=== PATIENT | female | born 1975 | race Caucasian/White ===

== ENCOUNTER 2020-03-31 07:21 | Outpatient (REF) | payer OTHER, SELFPAY ==
--- NOTE | 2020-03-31 07:25 | MM_ITS ---
EXAMINATION: MM SCREENING DIGITAL BREAST TOMOSYNTHESIS, BILATERAL CLINICAL INFORMATION: Screening. Asymptomatic. The lifetime risk of breast cancer based on the Tyrer-Cuzick Model is 17%. COMPARISON: Mammography: 03/26/2019, 02/18/2018, 01/15/2017 TECHNIQUE: Digital breast tomosynthesis is performed in both the craniocaudal and mediolateral oblique views along with computer-aided detection (CAD). Synthesized 2D images are generated from the tomosynthesis. FINDINGS: There are scattered areas of fibroglandular density (ACR BI-RADS breast composition Category b). There are no significant masses, abnormal calcifications, or other abnormalities. There is small intramammary node again suggested mid 9:00 right breast, under 5 mm. The axilla and skin contours are unremarkable. MM/MM tomosynthesis screening BI IMPRESSION: No significant changes from prior study. ASSESSMENT: BI-RADS 2: Benign RECOMMENDATION: Routine annual mammography screening. This patient's information was entered into a reminder system with a target due date for their next mammogram.
== END 2020-03-31 07:22 | disposition home or self-care (01) ==
LOC: HO.MAMMO 07:21
PROVIDERS: PCP Internal Medicine; Visit Provider Internal Medicine
DX: Z12.31 Encounter for screening mammogram for malignant neoplasm of breast (principal)
CPT/HCPCS: 77063; 77067

== ENCOUNTER 2020-04-02 06:59 | Outpatient (REF) | payer OTHER, SELFPAY ==
[2020-04-02 11:40] LABS: Hematocrit 37.6 % (37-47); Hemoglobin 11.7 g/dl (12.0-16.0); Mean Corpuscular HGB Conc 31.1 g/dl (31.0-35.0); Mean Corpuscular Hemoglobin 23.8 pg (27.0-33.0); Mean Corpuscular Volume 76.6 fL (80-98); Mean Platelet Volume 9.6 fL (9.4-12.3); Platelet Count 444 X10*3/uL (160-400); Red Blood Count 4.91 X10*6/uL (4.20-5.50); Red Cell Distribution Width 14.4 % (11.0-16.0); White Blood Count 9.3 X10*3/uL (4.8-10.8)
[2020-04-02 11:50] LABS: Alanine Aminotransferase 16 U/L (0-31); Aspartate Amino Transferase 17 U/L (5-31); Cholesterol 172 mg/dL; Glucose Fasting 92 mg/dL (60-99); HDL Cholesterol 49 mg/dL; LDL Cholesterol Calculated 97 mg/dl; Triglycerides 132 mg/dL
[2020-04-02 12:13] LABS: TSH reflex Free T4 1.49 mIU/mL (0.32-4.0)
== END 2020-04-02 07:00 | disposition home or self-care (01) ==
LOC: HO.HMGCLDS 06:59
PROVIDERS: PCP Internal Medicine; Visit Provider Internal Medicine
DX: Z00.01 Encounter for general adult medical examination with abnormal findings (principal); K21.00 Gastro-esophageal reflux disease with esophagitis, without bleeding; Z83.49 Family history of other endocrine, nutritional and metabolic diseases
CPT/HCPCS: 36415; 80061; 82947; 84443; 84450; 84460; 85027

== ENCOUNTER 2020-11-26 14:42 | Outpatient (REF) | payer OTHER, SELFPAY ==
[2020-11-29 13:17] LABS: HPV mRNA E6/E7 rflx Not Detected (Not Detected)
== END 2020-11-26 14:43 | disposition home or self-care (01) ==
LOC: HO.LAB 14:42
PROVIDERS: Visit Provider Obstetrics & Gynecology
DX: Z01.411 Encounter for gynecological examination (general) (routine) with abnormal findings (principal); Z11.51 Encounter for screening for human papillomavirus (HPV); R31.29 Other microscopic hematuria
CPT/HCPCS: 87086; 87624; 88142

== ENCOUNTER → 2020-12-10 14:57 | Outpatient (BNVA) | payer OTHER, SELFPAY | PROVIDERS: Visit Provider Obstetrics & Gynecology ==

== ENCOUNTER 2020-12-17 08:36 | Outpatient (REF) | payer OTHER, SELFPAY ==
--- NOTE | ~2020-12-17 | CT_ITS ---
EXAMINATION: CT ABDOMEN AND PELVIS WITHOUT AND WITH CONTRAST CLINICAL INFORMATION: Hematuria COMPARISON: None TECHNIQUE: Multidetector volumetric imaging was performed of the abdomen and pelvis before and after the IV administration of 85 mL of Omnipaque 300 intravenous contrast. Sagittal and coronal reformatted images were obtained on the technologist's workstation. This CT examination was performed using dose optimization techniques as appropriate, variously including the following: *Automated exposure control *Adjustment of mA and/or kV according to patient size (this includes techniques or standardized protocols for targeted exams where dose is matched to indication/reason for exam; i.e. extremities or head) *Use of iterative reconstruction technique DLP: 1100 mGy-cm FINDINGS: LUNG BASES: The visualized lung bases are unremarkable. LIVER, GALLBLADDER, AND BILIARY TREE: The liver is normal in size, shape, and attenuation. No focal hepatic lesion or biliary ductal dilatation is present. The gallbladder has been removed. PANCREAS: Unremarkable SPLEEN: Unremarkable ADRENAL GLANDS: Unremarkable KIDNEYS AND URETERS: The kidneys are normal in size, shape, and attenuation. No renal stone, mass or hydronephrosis is seen. The collecting systems are normal. The ureters are normal. BLADDER: The bladder is well-distended. The bladder is otherwise normal. GASTROINTESTINAL TRACT: The small and large bowel are unremarkable. The appendix is unremarkable. ABDOMINAL WALL: No significant hernia is appreciated. LYMPH NODES: Normal VASCULAR: Unremarkable PELVIC VISCERA: Unremarkable OSSEOUS STRUCTURES: Unremarkable CT/CT abdomen pelvis wo/w con IMPRESSION: Normal CT IVP. No cause of hematuria seen.
[2020-12-17] MEDS: iohexoL 350 MG/ML 100 ML INFUS..BTL IV (09:42)
== END 2020-12-17 08:37 | disposition home or self-care (01) ==
LOC: HO.CT 08:36
PROVIDERS: Visit Provider Obstetrics & Gynecology
DX: R31.29 Other microscopic hematuria (principal)
CPT/HCPCS: 74178; Q9967

== ENCOUNTER → 2021-02-13 14:12 | Outpatient (BNVA) | payer OTHER, SELFPAY | PROVIDERS: PCP Internal Medicine ==

== ENCOUNTER → 2021-02-28 15:22 | Outpatient (BNVA) | payer OTHER, SELFPAY | PROVIDERS: PCP Internal Medicine ==

== ENCOUNTER 2021-04-13 07:31 | Outpatient (REF) | payer OTHER, SELFPAY ==
--- NOTE | ~2021-04-13 | MM_ITS ---
EXAMINATION: MM SCREENING DIGITAL BREAST TOMOSYNTHESIS, BILATERAL CLINICAL INFORMATION: Screening. Asymptomatic. The lifetime risk of breast cancer based on the Tyrer-Cuzick Model is 17%. COMPARISON: Mammography: 03/31/2020, 03/26/2019 TECHNIQUE: Digital breast tomosynthesis is performed in both the craniocaudal and mediolateral oblique views along with computer-aided detection (CAD). Synthesized 2D images are generated from the tomosynthesis. FINDINGS: There are scattered areas of fibroglandular density (ACR BI-RADS breast composition Category b). There are no significant masses, abnormal calcifications, or other abnormalities. Parenchymal pattern is similar to prior studies. Probable intramammary node mid 9:00 right breast is similar to prior exams. The axilla and skin contours are unremarkable. MM/MM tomosynthesis screening BI IMPRESSION: No mammographic evidence of malignancy. ASSESSMENT: BI-RADS 2: Benign RECOMMENDATION: Routine annual mammography screening. This patient's information was entered into a reminder system with a target due date for their next mammogram.
== END 2021-04-13 07:32 | disposition home or self-care (01) ==
LOC: HO.MAMMO 07:31
PROVIDERS: Visit Provider Obstetrics & Gynecology
DX: Z12.31 Encounter for screening mammogram for malignant neoplasm of breast (principal)
CPT/HCPCS: 77063; 77067

== ENCOUNTER → 2021-05-16 14:47 | Outpatient (BNVA) | payer OTHER, SELFPAY | PROVIDERS: PCP Internal Medicine ==

== ENCOUNTER 2022-05-02 10:50 | Day surgery (SDC) | payer OTHER, SELFPAY ==
--- NOTE | 2022-05-01 12:32 | HO.ANESPROP2 ---
Documented by User: Marla Mendoza NP 05/01/22 12:33 HPI - Anesthesia Eval Consult details Narrative: 46yo F for Colonoscopy PMFSH Active Problems Active Problems: All Active Problems (Updated 05/01/22 @ 12:27 by Rose Beltran, GERARDO) Microscopic hematuria (Acute) Generalized anxiety disorder (Acute) Frequent UTI (Acute) Past Medical History Medical History Frequent UTI Gastric reflux Generalized anxiety disorder Hiatal hernia with GERD IBS (irritable bowel syndrome) Sleep apnea Family History Family History Paternal Grandmother Breast CA Paternal Uncle Mental health disorder Sister Mental health disorder Mother Mental health disorder Surgical History Surgical History (Updated 05/02/22 @ 11:39 by Landy Handy MD) History of esophagogastroduodenoscopy (EGD) Hx of cholecystectomy Social History Social History Housing: House Alcohol intake: current Patient Tobacco Use Status: Never used Tobacco e-Cigarette/Vaping Use: Never Used Use of substances other than those prescribed or required for medical reasons: No Are you DNR?: No Advance Directives: No Advance Directives Information Provided: Yes Current occupational status: employed Cognitive needs: No Hearing needs: No Vision needs: Yes Meds Allergies Allergy/AdvReac Type Severity Reaction Status Date / Time No Known Allergies Allergy Verified 01/28/22 14:39 [No Known Allergies*] Home Medications Medication Instructions Recorded Confirmed Last Taken Type multivitamin 1 tab PO DAILY 11/07/21 11/25/21 Unknown History Exam Exam Date and Time: May 01, 2022 1232 Assessment and Plan Assessment Anesthesia Assessment: Chart Reviewed Documented by User: Landy Handy MD 05/02/22 11:41 PMFSH Past Medical History Medical History Frequent UTI Gastric reflux Generalized anxiety disorder Hiatal hernia with GERD IBS (irritable bowel syndrome) Sleep apnea Family History Family History Paternal Grandmother Breast CA Paternal Uncle Mental health disorder Sister Mental health disorder Mother Mental health disorder Family history of problems with anesthesia: No Surgical History Surgical History (Updated 05/02/22 @ 11:39 by Landy Handy MD) History of esophagogastroduodenoscopy (EGD) Hx of cholecystectomy History of Problems with Anesthesia: No Social History Social History Housing: House Alcohol intake: current Patient Tobacco Use Status: Never used Tobacco e-Cigarette/Vaping Use: Never Used Use of substances other than those prescribed or required for medical reasons: No Are you DNR?: No Advance Directives: No Advance Directives Information Provided: Yes Current occupational status: employed Cognitive needs: No Hearing needs: No Vision needs: Yes Meds Allergies Allergy/AdvReac Type Severity Reaction Status Date / Time No Known Allergies Allergy Verified 01/28/22 14:39 [No Known Allergies*] Home Medications Medication Instructions Recorded Confirmed Last Taken Type multivitamin 1 tab PO DAILY 11/07/21 11/25/21 Unknown History Exam Height,Weight and Vital Signs: Height 5 ft 2 in Weight 83.915 kg Vital Signs Temp Pulse Resp BP Pulse Ox O2 Del Method 05/02/22 11:16 98.6 F 75 18 136/95 H 100 Room Air Pertinent Lab Results Pertinent Lab Results: Lab Results 05/02/22 Range/Units Unknown Urine Test NEGATIVE (NEGATIVE) Airway Mallampati Class: II TM Dist: >3cm Neck ROM: Full Loose/Missing/Broken Teeth: No (DEnies broken, loose, missing teeth. Caps bottom front, back left) Heart: RRR Lungs: CTAB Assessment and Plan Assessment Anesthesia Assessment: Anesthesia Plan Discussed Final Anesthetic Review Family History of Problems with Anesthesia: No History of Problems with Anesthesia: No NPO: Yes ASA Class: II Final Preanesthetic Review: No Changes in Pt Med Stat, Meds/Allgs Chart Reviewed, Consent Obtained/Reviewed and Anes Risks/Benef Reviewed Patient Risk: Intermediate Procedure Risk: Low Assessment/Block/Sedation in SS: Assess/Block/Sedation-SS Anesthetic Plan Anesthetic Plan: MAC: Disposition: Standard PACU
[2022-05-02 11:12] VITALS: BMI 33.8
[2022-05-02 11:16] VITALS: BP 136/95; PULSE 75; RESP 18; TEMP 37; O2SAT 100
[2022-05-02 11:23] LABS: UPreg QC Valid YES; Urine Pregnancy NEGATIVE (NEGATIVE)
[2022-05-02] MEDS: Lactated Ringers 1,000 ML 100 ML IVCONT (11:39)
[2022-05-02 13:02] VITALS: BP 91/44; PULSE 91; RESP 20; TEMP 36.4; O2SAT 97
--- NOTE | 2022-05-02 13:03 | PM.OP ---
Brief Operative Note Date of Service: 05/02/22 Pre-op diagnosis: Screening Post-op diagnosis: other (Polyps) Procedure: Colonoscopy to the cecum and TI with biopsy and removal of polyps Surgeon: Lopez Fermin Anesthesia: MAC Was an Inventory Associate used for this Procedure?: No Estimated blood loss (mL): 2.0 Pathology: other (A. Polyp at 30cm B. Polyp at 20cm) Condition: stable Disposition: PACU
[2022-05-02 13:17] VITALS: BP 103/67; PULSE 85; RESP 16; TEMP 36.5; O2SAT 99
--- NOTE | 2022-05-02 21:12 | OP_ITS ---
SURGEON: Lopez Fermin MD INDICATIONS: The patient presents for evaluation of colorectal cancer screening. Full consent has been obtained from her for this, including risks of bleeding and perforation. PREOPERATIVE DIAGNOSIS: Colorectal cancer screening. POSTOPERATIVE DIAGNOSIS: Colorectal cancer screening, small colon polyps, diverticulosis, internal and external hemorrhoids. PROCEDURE PERFORMED: Colonoscopy to the cecum and terminal ileum with biopsy and removal of polyps. ESTIMATED BLOOD LOSS: COMPLICATIONS: ANESTHESIA: Monitored anesthesia care. ASSISTANTS: SPECIMENS: DESCRIPTION OF PROCEDURE: The patient was placed in the left lateral decubitus position. The digital rectal exam revealed some external hemorrhoids. The Olympus video pediatric colonoscope was entered into the rectum and advanced easily to the cecum. Once in the cecum I did identify a normal-appearing cecal pouch with appendiceal orifice and a normal-appearing ileocecal valve. The terminal ileum was cannulated and appeared normal. The scope withdrawn back into the colon. The entire cecum and the ileocecal valve appeared normal. The scope was slowly withdrawn assessing all mucosal surfaces carefully. Preparation was excellent. At 30 cm and at 20 cm were flat less than 5 mm polyps, which were each biopsied and completely removed with a cold biopsy forceps. I did visualize a single sigmoid diverticulum as well. I did not visualize any other polyps, colitis, nor angiodysplasia. In the rectum, the scope was retroflexed visualizing internal hemorrhoids, but no other pathology. The rectal mucosa appeared normal. The scope was straightened and withdrawn from the patient. She tolerated the procedure well and was returned to the recovery area in stable condition. IMPRESSION: 1. Colon polyps, status post biopsy and removal. 2. Single sigmoid diverticulum. 3. Internal and external hemorrhoids. PLAN: The results of the biopsies will be checked. If either of the polyps are tubular adenomas I would recommend a followup colonoscopy in 5 years. If they are both hyperplastic I would recommend a followup colonoscopy in 10 years. She will otherwise see me on a p.r.n. basis. MD GERMÁN Gonzales/CHET / [id number] MTDD
== END 2022-05-02 13:45 | disposition home or self-care (01) ==
PROVIDERS: Nurse Practitioner; PCP Internal Medicine; Visit Provider Internal Medicine
PROC: 0DJD8ZZ Inspection of Lower Intestinal Tract, Via Natural or Artificial Opening Endoscopic (ICD-10-PCS; CPT 45378; principal; 2022-05-02 12:00)
DX: Z12.11 Encounter for screening for malignant neoplasm of colon (principal); K63.5 Polyp of colon; K57.30 Diverticulosis of large intestine without perforation or abscess without bleeding; K64.8 Other hemorrhoids; K64.4 Residual hemorrhoidal skin tags; K58.9 Irritable bowel syndrome, unspecified; K21.9 Gastro-esophageal reflux disease without esophagitis; R31.29 Other microscopic hematuria; F41.1 Generalized anxiety disorder; Z87.440 Personal history of urinary (tract) infections; Z87.898 Personal history of other specified conditions; Z90.49 Acquired absence of other specified parts of digestive tract
CPT/HCPCS: 45380; 81025; 88305; J2250; J2405; J2765

== ENCOUNTER 2022-05-24 07:23 | Outpatient (REF) | payer OTHER, SELFPAY ==
--- NOTE | ~2022-05-24 | MM_ITS ---
EXAMINATION: MM SCREENING DIGITAL BREAST TOMOSYNTHESIS, BILATERAL CLINICAL INFORMATION: Screening. Asymptomatic. The lifetime risk of breast cancer based on the Tyrer-Cuzick Model is 16%. COMPARISON: Mammography: 04/13/2021, 03/31/2020, 03/26/2019 TECHNIQUE: Digital breast tomosynthesis is performed in both the craniocaudal and mediolateral oblique views along with computer-aided detection (CAD). Synthesized 2D images are generated from the tomosynthesis. FINDINGS: There are scattered areas of fibroglandular density (ACR BI-RADS breast composition Category b). There are no significant masses, abnormal calcifications, or other abnormalities. Parenchymal pattern is similar to prior studies. There is no developing density or architectural abnormality. The previously noted nodule likely intramammary node mid outer right breast is less conspicuous, decreased. The axilla and skin contours are unremarkable. No significant changes. MM/MM tomosynthesis screening BI IMPRESSION: No mammographic evidence of malignancy. ASSESSMENT: BI-RADS 2: Benign RECOMMENDATION: Routine annual mammography screening. This patient's information was entered into a reminder system with a target due date for their next mammogram.
== END 2022-05-24 07:24 | disposition home or self-care (01) ==
LOC: HO.MAMMO 07:23
PROVIDERS: PCP Internal Medicine; Visit Provider Internal Medicine
DX: Z12.31 Encounter for screening mammogram for malignant neoplasm of breast (principal)
CPT/HCPCS: 77063; 77067

== ENCOUNTER 2022-12-29 07:51 | Outpatient (AMB) | payer OTHER, SELFPAY ==
--- NOTE | 2022-12-29 07:55 | MHC.PC.OV ---
Vital Signs 12/29/22 08:00 Height 5 ft 2 in Weight 190 lb BMI 34.7 BP 122/80 Blood Pressure Location Rt brachial Position Sitting Pulse 64 Pulse Source Pulse Oximeter Pulse Oximetry (%) 99 Oxygen Delivery Method Room Air Intake Visit Reasons: Annual PE Intake Note: Pt is here today for her PE Is last menstrual period known: Yes Last menstrual period: 12/16/22 Allergies No Known Allergies [No Known Allergies*] Allergy (Verified 12/29/22 08:58) Medication List - Last Reconciled 12/29/22 by Geraldine Nash MD multivitamin 1 tab PO DAILY Tobacco use date assessed: 12/29/22 Dental Screening Dental Screen Date: 12/29/22 Did you have a dental visit in the last 12 months?: No Was dental information given to patient?: Patient declined HPI Annual PE HPI Details 47 year old here today for her physical exam has generalized anxiety disorder, stop taking her buspirone, did not feel that she needed to take it, able to manage her anxiety symptoms which are occurring infrequently with behavioral techniques. She is up-to-date with all her vaccinations, but does not want to get her COVID booster anymore. She sees Dr. Aguiar for her routine Pap and pelvic exam, up-to-date with her screening mammogram and off also is up-to-date with her screening colonoscopy done by Dr. Fermin last year with 2 hyperplastic polyps removed, due for repeat colonoscopy in 2031. She has had history of frequent UTIs, already been seen by Urology, and placed on antibiotics at that time. At present has no urinary symptoms PFSH Medical History (Updated 12/29/22 @ 09:11 by Geraldine Nash MD) Anemia Annual visit for general adult medical examination with abnormal findings Family history of hypothyroidism Frequent UTI Gastric reflux Generalized anxiety disorder Hiatal hernia with GERD IBS (irritable bowel syndrome) Obesity Sleep apnea Surgical History (Updated 05/07/22 @ 06:08 by Geraldine Nash MD) History of esophagogastroduodenoscopy (EGD) Hx of cholecystectomy Hx of colonoscopy Family History (Updated 12/29/22 @ 09:05 by Geraldine Nash MD) Paternal Grandmother Breast CA Paternal Uncle Mental health disorder Sister Mental health disorder Acquired hypothyroidism Mother Mental health disorder Acquired hypothyroidism Social History Housing: House Alcohol intake: current Patient Tobacco Use Status: Never used Tobacco e-Cigarette/Vaping Use: Never Used Current occupational status: employed Cognitive needs: No Hearing needs: No Vision needs: Yes Female Reproductive History Menstrual Age of Menarche: 11 Date of last menstrual period: 12/16/22 Questionnaire PHQ-9 Over the last 2 weeks, how often have you been bothered by any of the following problems? 1. Little interest or pleasure in doing things: several days 2. Feeling down, depressed, or hopeless: not at all 3. Trouble falling or staying asleep, or sleeping too much: several days 4. Feeling tired or having little energy: several days 5. Poor appetite or overeating: several days 6. Feeling bad about yourself - or that you are a failure or have let yourself or your family down: several days 7. Trouble concentrating on things, such as reading the newspaper or watching television: several days 8. Moving or speaking so slowly that other people could have noticed. Or the opposite - being so fidgety or restless that you have been moving around a lot more than usual: not at all 9. Thoughts that you would be better off or of hurting yourself in some way: not at all Total score: 6 Depression Screening Interpretation: Negative 88762 - PHQ-9 Billing: Yes Source: Developed by Drs. Lopez Daniel, Mercedes Santacruz, Leopoldo Bauer and colleagues, with an educational susan from [employer]. Thrive Questionnaire Date Thrive assessed: 11/07/21 I am a: Patient What is your living situation today?: I have a steady place to live Within the past 12 months, did the food you bought not last and you didn't have the money to get more?: Never true Within the past 12 months, did you worry whether your food would run out before you got money to buy more?: Never true Do you have trouble paying for medicines?: No Do you have trouble getting transportation to medical appointments?: No Do you have trouble paying your heating and electricity bill?: No Do you have trouble taking care of your child, family member or friend?: No Do you have trouble with day-to-day activities such as bathing, preparing meals, shopping, managing finances, etc.?: No Are you currently unemployed and looking for a job?: No Are you interested in more education?: No AUDIT C Alcohol Use Questionnaire (AUDIT-C) 1. How often do you have a drink containing alcohol?: Monthly or less 2. How many drinks containing alcohol do you have on a typical day when you are drinking?: 1 or 2 3. How often do you have six or more drinks on one occasion?: Never Total Score: 1 VADIM-7 AMB Questionnaire VADIM-7 Date VADIM - 7 assessed: 12/29/22 Feeling nervous, anxious, or on edge: 1 = Several days Not being able to stop or control worryin = Several days Worrying too much about different things: 2 = More than half the days Trouble relaxin = More than half the days Being so restless that it is hard to sit still: 1 = Several days Becoming easily annoyed or irritable: 1 = Several days Feeling afraid as if something awful might happen: 1 = Several days Total VADIM-7 score (0-4 normal; 5-9 mild; 10-14 moderate; 15-21 severe): 9 Source: Developed by Drs. Lopez Daniel, Mercedes Santacruz, Leopoldo Bauer and colleagues, with an educational susan from [employer]. VADIM-7 Assessment Billing VADIM-7 Assessment Tool: VADIM-7 Assessment 87566 Review of Systems Const Denies body aches, Denies fatigue, Denies fever(s), Denies headache(s) and Denies weakness Eyes Details: Overdue for her eye exam Denies change in vision ENT Denies dizziness, Denies headache(s), Denies nasal congestion, Denies nasal discharge, Denies post nasal drip and Denies sore throat Card Denies chest pain, Denies lightheadedness, Denies palpitations and Denies dyspnea Resp Denies chest congestion, Denies cough, Denies dyspnea and Denies wheezing GI Denies abdominal pain, Denies change in bowel habits and Denies heartburn Denies hematuria, Denies urinary frequency, Denies dysuria and Denies urinary urgency Musc Reports no additional complaints Skin/Breast Denies breast pain, Denies breast mass, Denies lesions and Denies rash Neuro Denies dizziness, Denies headache(s) and Denies weakness Psych Reports as per HPI Endo Denies fatigue, Denies polydipsia, Denies polyuria and Denies palpitations Gómez/Lymph Denies easy bruising Aller/Immun Denies seasonal rhinorrhea and Denies wheezing Physical exam (Primary Care) Vital Signs: Last Vital Signs Pulse 64 12/29/22 08:00 BP 122/80 12/29/22 08:00 Pulse Ox 99 12/29/22 08:00 Oxygen Delivery Method Room Air 12/29/22 08:00 BMI result Body Mass Index 34.7 BMI Assessment/Plan discussion: High BMI High, discussed plan: lifestyle, weight reduction, dietary and physical activity Tobacco/Smoking Status: Tobacco use Status Tobacco use date assessed 12/29/22 12/29/22 08:10 Patient Tobacco Use Status Never used Tobacco 12/29/22 07:58 e-Cigarette/Vaping Use Never Used 12/29/22 07:58 PHQ-9: PHQ-9 Score PHQ-9: Total score 7 12/29/22 08:52 Depression Screening Interpretation: Negative Thrive Assessment: Date of Thrive Assessment Date Thrive assessed 11/07/21 12/29/22 07:58 Const General: comfortable, no acute distress and alert Orientation/consciousness: patient oriented x3 Limitations: no limitations HENMT Ears: external ears normal, TM's normal bilaterally and EAC's normal General nose exam: Normal external nose present and No nasal discharge present Mouth: Normal oral and palatal mucosa present, oropharynx normal and moist mucous membranes Eyes General: appearance normal, both eyes and all related structures Conjunctivae: conjunctivae normal Sclerae: sclerae normal Pupils: Equal, round and reactive pupils present EOM: EOMs intact bilaterally Neck Neck: Yes full ROM, Yes no lymphadenopathy and Yes supple Chest Chest palpation & inspection: normal inspection of the chest Breast/axilla palpation: normal palpation of the breasts Resp Effort & Inspection: normal respiratory effort and able to speak in complete sentences Auscultation: clear to auscultation bilaterally Cardio Rate: regular rate Rhythm: regular rhythm Heart sounds: S1 normal heart sound present and S2 normal heart sound present GI Palpation (GI): Soft to palpation, nontender and no masses Auscultation: normal bowel sounds Back/Spine/Pelvis Back: No back tenderness Skin Other: Small dry patches on lower back and elbows and knees Neuro General: patient oriented x3, gait normal, tone normal, moves all extremities, Normal light touch and pain sensation and no focal motor deficits Cranial nerves: Yes CN's II-XII intact bilaterally and Yes Equal, round and reactive pupils present Cognition (Neuro): normal cognition Extrem General: Yes full ROM, Yes no joint enlargement, Yes no clubbing, cyanosis or edema and Yes no calf tenderness Psych Appearance: grossly normal and well kempt Mental Status: mental status grossly normal Speech and movement: Normal speech and movement present Affect: normal affect Attitude: cooperative Thought process: Normal thought process present Thought content: Normal thought content present Assessment and Plan Assessment & Plan (1) Annual visit for general adult medical examination with abnormal findings: Code(s): Z00.01 - Encounter for general adult medical examination with abnormal findings Plan: Will check appropriate labs. Recommended dental visit every 6 months and regular eye exams, at least every 2 years. Take adequate calcium in diet and vitamin-D 3 at 2000 IU per cap once a day, in addition to weight-bearing exercises to help maintain good muscle tone and weight control. Instructed to do self-breast exam, and up-to-date with her yearly mammogram, and cervical cancer screening as well as screening colonoscopy.. Up-to-date with all her vaccines, but does not want to get her COVID booster (2) Generalized anxiety disorder: Code(s): F41.1 - Generalized anxiety disorder Plan: Discussed symptoms of anxiety. Declines referral. Discu for counseling and does to start any medication at present time able to manage with behavioral techniques. Discussed other ways to relieve stress including : exercise or a massage, Get enough rest, Avoid alcohol, caffeine, nicotine, and illegal drugs which can increase your anxiety level and cause sleep problems. (3) Microscopic hematuria: Code(s): R31.29 - Other microscopic hematuria Plan: Urine with reflex microscopic exam and culture ordered (4) Family history of hypothyroidism: Code(s): Z83.49 - Family history of other endocrine, nutritional and metabolic diseases Plan: Check TSH with free T4 (5) Anemia: Code(s): D64.9 - Anemia, unspecified Plan: CBC and iron profile ordered (6) Obesity: Code(s): E66.9 - Obesity, unspecified Plan: Discussed need to increase activity and wt reduction. Recommended focusing on improving your health instead of dieting. : Eat Mediterranean diet, limit foods high in fat, sugar, and calories, eat slowly, pay attention to portion sizes, plan your meals ahead of time, start regular physical activity 150 minutes of moderate intensity exercise or 90 minutes/week of vigorous exercise and increase water intake. Orders: Orders Glucose Fasting Today F41.1 - Generalized anxiety disorder, Z00.01 - Encounter for general adult medical examination with abnormal findings IRON PROFILE Today F41.1 - Generalized anxiety disorder, Z00.01 - Encounter for general adult medical examination with abnormal findings Lipid Panel Today F41.1 - Generalized anxiety disorder, Z00.01 - Encounter for general adult medical examination with abnormal findings Vitamin D 25-OH Total Today F41.1 - Generalized anxiety disorder, Z00.01 - Encounter for general adult medical examination with abnormal findings Complete Blood Count Auto Diff Today F41.1 - Generalized anxiety disorder, Z00.01 - Encounter for general adult medical examination with abnormal findings UA CC w/rflx Micro + Cult Today D64.9 - Anemia, unspecified, R31.29 - Other microscopic hematuria, Z83.49 - Family history of other endocrine, nutritional and metabolic diseases TSH reflex Free T4 Today D64.9 - Anemia, unspecified, R31.29 - Other microscopic hematuria, Z83.49 - Family history of other endocrine, nutritional and metabolic diseases Coding Level of Care Code Est Pt Prev Care 40-64y(83916) Diagnoses Annual visit for general adult medical examination with abnormal findings Z00.01 Generalized anxiety disorder F41.1 Microscopic hematuria R31.29 Family history of hypothyroidism Z83.49 Anemia D64.9 Obesity E66.9 Additional Codes VADIM-7 Assessment Billing - VADIM-7 Assessment Tool: VADIM-7 Assessment [id number] ([id number])
[2022-12-29 08:00] VITALS: BP 122/80; PULSE 64; O2SAT 99; BMI 34.7
== END 2022-12-29 09:38 | disposition home or self-care (01) ==
PROVIDERS: Visit Provider Internal Medicine
DX: Z00.01 Encounter for general adult medical examination with abnormal findings (principal); F41.1 Generalized anxiety disorder; R31.29 Other microscopic hematuria; Z83.49 Family history of other endocrine, nutritional and metabolic diseases; D64.9 Anemia, unspecified; E66.9 Obesity, unspecified
CPT/HCPCS: 99396

== ENCOUNTER 2022-12-29 08:59 | Outpatient (REF) | payer OTHER, SELFPAY ==
[2022-12-29 11:53] LABS: Appearance Urine Clear; Color Urine Yellow; Glucose Urine UA Negative (Negative); Leukocyte Esterase Urine Negative (Negative); Nitrite Urine Negative (Negative); Specific Gravity - Urine <= 1.005 (1.005-1.025); Urine Blood Negative (Negative); Urine Ketones Negative (Negative); Urine Protein Negative (Neg-Trace)
[2022-12-29 11:59] LABS: MANUAL DIFF FLAG NO
[2022-12-29 12:15] LABS: Basophils Absolute Auto 0.1 X10*3/uL (0.0-0.2); Basophils Percent Auto 0.4 % (0-2); Eosinophils Absolute Auto 0.3 X10*3/uL (0.0-0.4); Eosinophils Percent Auto 2.4 % (0-4); Hematocrit 41.4 % (37.0-47.0); Imm Gran Abs Auto 0.05 X10*3/uL (0.00-0.03); Imm Gran Pct Auto 0.4 % (0.0-0.4); Lymphocytes Absolute Auto 3.7 X10*3/uL (1.2-4.9); Lymphocytes Percent Auto 32.7 % (20-40); Mean Corpuscular HGB Conc 31.4 g/dl (31.0-35.0); Mean Corpuscular Hemoglobin 24.9 pg (27.0-33.0); Mean Corpuscular Volume 79.3 fL (80.0-98.0); Mean Platelet Volume 9.5 fL (9.4-12.3); Monocytes Absolute Auto 0.7 X10*3/uL (0.1-1.2); Monocytes Percent Auto 6.1 % (2-11); Neutrophils Absolute Auto 6.6 x10*3/uL (2.0-8.3); Platelet Count 407 X10*3/uL (160-400); Red Blood Count 5.22 X10*6/uL (4.20-5.50); Red Cell Distribution Width 14.8 % (11.0-16.0); White Blood Count 11.3 X10*3/uL (4.8-10.8)
[2022-12-29 12:41] LABS: Cholesterol 202 mg/dL; Glucose Fasting 92 mg/dL (60-99); HDL Cholesterol 59 mg/dL; Iron 34 mcg/dL (30-160); LDL Cholesterol Calculated 109 mg/dl; Percent Iron Saturation 9 % (15-50); Total Iron Binding Capacity 364 mcg/dL (228-428); Triglycerides 171 mg/dL; Unsaturated Iron Binding 330 ug/dL
[2022-12-29 13:01] LABS: TSH reflex Free T4 1.44 uIU/mL (0.32-4.0); Vitamin D 25-OH Total 29.4 ng/mL (>30)
== END 2022-12-29 09:00 | disposition home or self-care (01) ==
LOC: HO.HMGCLDS 08:59
PROVIDERS: PCP Internal Medicine; Visit Provider Internal Medicine
DX: Z00.01 Encounter for general adult medical examination with abnormal findings (principal); F41.1 Generalized anxiety disorder; D64.9 Anemia, unspecified; R31.29 Other microscopic hematuria; Z83.49 Family history of other endocrine, nutritional and metabolic diseases
CPT/HCPCS: 36415; 80061; 81003; 82306; 82947; 83540; 84443; 85025

== ENCOUNTER 2023-06-13 07:22 | Outpatient (REF) | payer OTHER, SELFPAY ==
--- NOTE | ~2023-06-13 | MM_ITS ---
EXAMINATION: MM SCREENING DIGITAL BREAST TOMOSYNTHESIS, BILATERAL CLINICAL INFORMATION: Screening. Asymptomatic. COMPARISON: Mammograms dating back to 01/15/2017 TECHNIQUE: Digital breast tomosynthesis is performed in both the craniocaudal and mediolateral oblique views along with computer-aided detection (CAD). Tomosynthesis views of the bilateral breasts were obtained at 1 mm increments and C-views generated. Computer-aided detection was utilized by the radiologist in the interpretation of this exam. FINDINGS: There are scattered areas of fibroglandular density (ACR BI-RADS breast composition Category b). Right: Parenchymal pattern is stable. No worrisome mass lesion, architectural distortion or suspicious microcalcifications. Left: Parenchymal pattern is unchanged. No developing mass lesion, architectural distortion or suspicious microcalcifications. MM/MM tomosynthesis screening BI IMPRESSION: No mammographic evidence of malignancy. ASSESSMENT: BI-RADS BI-RADS 1 - Negative RECOMMENDATION: Routine annual mammography screening. This examination should not preclude the clinical evaluation of a suspicious palpable abnormality. This patient's information was entered into a reminder system with a target due date for their next mammogram.
== END 2023-06-13 07:23 | disposition home or self-care (01) ==
LOC: HO.MAMMO 07:22
PROVIDERS: PCP Internal Medicine; Visit Provider Internal Medicine
DX: Z12.31 Encounter for screening mammogram for malignant neoplasm of breast (principal)
CPT/HCPCS: 77063; 77067

== ENCOUNTER 2024-05-05 14:15 | Outpatient (AMB) | payer OTHER, SELFPAY ==
--- OUTSIDE RECORDS SUMMARY | 2024-05-05 14:17 | XMS_ITS | Patient Health Record ---
Author Organization [facility] Address [address] [place] [id number] Care Team Providers Care High Man Name Role Phone Saad ANTHONY, Geraldine Primary Care Provider Lopez Tyler Unavailable [phone] REASON FOR REFERRAL No Information MEDICATIONS Medication SIG (Take, Route, Frequency, Duration) Notes Start Date End Date Status Multi Vitamin/Minerals - Orally Active Apple Cider Vinegar Active busPIRone HCl 5 MG Oral for 90 Active IMMUNIZATIONS Vaccine Route Administration Date Status Comme nts Influenza Unknown 02/15/2022 Administered SOCIAL HISTORY Sex Assigned At : Social History Observation Description Sex Assigned At Unknown PROBLEMS Problem Type ICD Code Onset Dates Problem Status W/U Status Risk SNOMED Code Notes Problem Gastroesophageal reflux disease, esophagitis presence not specified (K21.9) Active confirmed 004750636 Problem Abdominal pain, left upper quadrant (R10.12) Active confirmed 376834132 Problem Epigastric pain (R10.13) Active confirmed 23784011 Problem Irritable bowel syndrome with diarrhea (K58.0) Active confirmed 034838032 Problem Gastroesophageal reflux disease with esophagitis (K21.0) Active confirmed [id number] Problem Hiatal hernia (K44.9) Active confirmed 93948432 Problem Colon cancer screening (Z12.11) Active confirmed Colon can cer screening (408828687) Problem GERD (gastroesophageal reflux disease) (K21.9) Active confirmed Gastroesophagea l reflux disease (211464669) Problem Diverticulosis of large intestine without perforation or abscess without bleeding (K57.30) Active confirmed Diverticul ar disease of colon (771010414) PLAN OF TREATMENT Future Test Test Name Order Date UPPER GI ENDOSCOPY 07/23/2016 COLONOSCOPY 03/18/2022 Insurance Providers Payer Name Payer Address Payer Phone Subscriber Number Group Number Insured Name Patient Relationship to Insured Coverage Start Date Coverage End Date [employer] [address] [address] [place] [address] [id number] [id number] Self - patient is the insured MEDICAL (GENERAL) HISTORY Medical History History ICD Code Denies MS,DM,CVA,Lung disease,renal dise ase GERD-EGD in 10/2016---small h iatal hernia, mild erosive esophagtiis---duodenal and gastric biopsies were normal--no H.pylori, no Brower's Sleep apnea for which she uses a CPAP IBS Anxiety Surgical History Surgery Date(Month/Year) Cholecystectomy 2002
--- NOTE | 2024-05-05 14:37 | MHC.PC.OV ---
Vital Signs 05/05/24 14:52 Height 5 ft 2 in Weight 195 lb BMI 35.7 BP 120/74 Blood Pressure Location Rt brachial Position Sitting Pulse 78 Pulse Source Pulse Oximeter Pulse Oximetry (%) 98 Oxygen Delivery Method Room Air Intake Visit Reasons: Annual PE Intake Note: Pt is here today for her PE: Last Mammogram 06/13/23, papsmear 11/27/20 Allergies No Known Allergies [No Known Allergies*] Allergy (Verified 05/05/24 15:16) Medication List - Last Reconciled 05/05/24 by Geraldine Nash MD multivitamin 1 tab PO DAILY Tobacco use date assessed: 05/05/24 Dental Screening Dental Screen Date: 05/05/24 Did you have a dental visit in the last 12 months?: Yes Did you have a dental problem in the last 6 months where you did not have access to dental care?: Yes Was dental information given to patient?: Patient has dentist HPI Annual PE HPI Details - The patient is a 48-year-old female presenting for an annual physical examination. - Elevated triglycerides noted from previous lab work, last checked a year ago; slightly increased from prior values. - Low vitamin D recorded as low normal at 29.4 from previous testing; only taking multivitamins at present time- - History of UTIs; discussed a past visit with a urologist leading to a non-invasive diagnosis ruling out significant pathology. - Reports fatigue but no history of thyroid issues personally; mother has a history of thyroid issues. - Reports current flu vaccination, Declined COVID-19 vaccination. Tetanus immunization is up to date. - Last Mammogram 06/13/23, papsmear 11/27/20 , up-to-date with her screening colonoscopy done by Dr. Fermin in 2021, 2 hyperplastic polyps removed [facility] Medical History Obesity Family history of hypothyroidism Anemia Annual visit for general adult medical examination with abnormal findings IBS (irritable bowel syndrome) Hiatal hernia with GERD Generalized anxiety disorder Frequent UTI Sleep apnea Gastric reflux Surgical History Hx of colonoscopy History of esophagogastroduodenoscopy (EGD) Hx of cholecystectomy Family History Paternal Grandmother Breast CA Paternal Uncle Mental health disorder Sister Mental health disorder Acquired hypothyroidism Mother Mental health disorder Acquired hypothyroidism Social History Housing: House Alcohol intake: current Patient Tobacco Use Status: Never used Tobacco e-Cigarette/Vaping Use: Never Used Current occupational status: employed Cognitive needs: No Hearing needs: No Vision needs: Yes Female Reproductive History Menstrual Age of Menarche: 11 Questionnaire PHQ-9 Over the last 2 weeks, how often have you been bothered by any of the following problems? 1. Little interest or pleasure in doing things: not at all 2. Feeling down, depressed, or hopeless: several days 3. Trouble falling or staying asleep, or sleeping too much: several days 4. Feeling tired or having little energy: several days 5. Poor appetite or overeating: not at all 6. Feeling bad about yourself - or that you are a failure or have let yourself or your family down: not at all 7. Trouble concentrating on things, such as reading the newspaper or watching television: not at all 8. Moving or speaking so slowly that other people could have noticed. Or the opposite - being so fidgety or restless that you have been moving around a lot more than usual: not at all 9. Thoughts that you would be better off or of hurting yourself in some way: not at all Total score: 3 Depression Screening Interpretation: Negative Depression Screening Done: Yes 78086 - PHQ-9 Billing: Yes Source: Developed by Drs. Lopez Daniel, Mercedes Santacruz, Leopoldo Bauer and colleagues, with an educational susan from [employer]. Thrive Questionnaire Date Thrive assessed: 05/05/24 I am a: Patient What is your living situation today?: I have a steady place to live Within the past 12 months, did the food you bought not last and you didn't have the money to get more?: Never true Within the past 12 months, did you worry whether your food would run out before you got money to buy more?: Never true Do you have trouble paying for medicines?: No Do you have trouble getting transportation to medical appointments?: No Do you have trouble paying your heating and electricity bill?: No Do you have trouble taking care of your child, family member or friend?: No Do you have trouble with day-to-day activities such as bathing, preparing meals, shopping, managing finances, etc.?: No Are you currently unemployed and looking for a job?: No Are you interested in more education?: No Please select the resources that you would like help with: None Currently or been in a relationship where the following occur: No concerns reported THRIVE Score: 0 AUDIT C Alcohol Use Questionnaire (AUDIT-C) 1. How often do you have a drink containing alcohol?: Monthly or less 2. How many drinks containing alcohol do you have on a typical day when you are drinking?: 1 or 2 3. How often do you have six or more drinks on one occasion?: Never Total Score: 1 VADIM-7 AMB Questionnaire VADIM-7 Date VADIM - 7 assessed: 05/05/24 Feeling nervous, anxious, or on edge: 0 = Not at all Not being able to stop or control worryin = Not at all Worrying too much about different things: 1 = Several days Trouble relaxin = Not at all Being so restless that it is hard to sit still: 0 = Not at all Becoming easily annoyed or irritable: 1 = Several days Feeling afraid as if something awful might happen: 0 = Not at all Total VADIM-7 score (0-4 normal; 5-9 mild; 10-14 moderate; 15-21 severe): 2 Source: Developed by Drs. Lopez Daniel, Mercedes Santacruz, Leopoldo Bauer and colleagues, with an educational susan from [employer]. VADIM-7 Assessment Billing VADIM-7 Assessment Tool: VADIM-7 Assessment 09414 Review of Systems Const Denies body aches, Denies fatigue, Denies fever(s), Denies headache(s) and Denies weakness Eyes Denies change in vision ENT Denies dizziness, Denies headache(s), Denies nasal congestion, Denies nasal discharge, Denies post nasal drip and Denies sore throat Card Denies chest pain, Denies lightheadedness, Denies palpitations and Denies dyspnea Resp Denies chest congestion, Denies cough, Denies dyspnea and Denies wheezing GI Denies abdominal pain, Denies change in bowel habits and Denies heartburn Denies hematuria, Denies urinary frequency, Denies dysuria and Denies urinary urgency Musc Reports no additional complaints Skin/Breast Denies breast pain, Denies breast mass, Denies lesions and Denies rash Neuro Denies dizziness, Denies headache(s) and Denies weakness Psych Reports no additional complaints Endo Denies fatigue, Denies polydipsia, Denies polyuria and Denies palpitations Gómez/Lymph Denies easy bruising Aller/Immun Denies seasonal rhinorrhea and Denies wheezing Physical exam (Primary Care) Vital Signs: Last Vital Signs Pulse 78 05/05/24 14:52 BP 120/74 05/05/24 14:52 Pulse Ox 98 05/05/24 14:52 Oxygen Delivery Method Room Air 05/05/24 14:52 BMI result Body Mass Index 35.7 Tobacco/Smoking Status: Tobacco use Status Tobacco use date assessed 05/05/24 05/05/24 14:40 Patient Tobacco Use Status Never used Tobacco 05/05/24 14:38 e-Cigarette/Vaping Use Never Used 05/05/24 14:38 PHQ-9: PHQ-9 Score PHQ-9: Total score 3 05/08/24 14:41 Depression Screening Interpretation: Negative Thrive Assessment: Date of Thrive Assessment Date Thrive assessed 05/05/24 05/05/24 14:54 Currently or been in a relationship where the following occur: No concerns reported Const General: comfortable, no acute distress and alert Orientation/consciousness: patient oriented x3 HENMT Ears: external ears normal, TM's normal bilaterally and EAC's normal General nose exam: Normal external nose present and No nasal discharge present Mouth: Normal oral and palatal mucosa present, oropharynx normal and moist mucous membranes Eyes General: appearance normal, both eyes and all related structures Conjunctivae: conjunctivae normal Sclerae: sclerae normal Pupils: Equal, round and reactive pupils present EOM: EOMs intact bilaterally Neck Neck: Yes full ROM, Yes no lymphadenopathy and Yes supple Chest Chest palpation & inspection: normal inspection of the chest Breast/axilla palpation: normal palpation of the breasts Resp Effort & Inspection: normal respiratory effort and able to speak in complete sentences Auscultation: clear to auscultation bilaterally Cardio Rate: regular rate Rhythm: regular rhythm Heart sounds: S1 normal heart sound present and S2 normal heart sound present GI Palpation (GI): Soft to palpation, nontender and no masses Auscultation: normal bowel sounds General: Yes deferred (sees dr ayon) Back/Spine/Pelvis Back: No back tenderness Skin General skin exam: no rashes or lesions noted Neuro General: patient oriented x3, gait normal, tone normal, moves all extremities, Normal light touch and pain sensation and no focal motor deficits Cranial nerves: Yes CN's II-XII intact bilaterally and Yes Equal, round and reactive pupils present Cognition (Neuro): normal cognition Extrem General: Yes full ROM, Yes no joint enlargement, Yes no clubbing, cyanosis or edema and Yes no calf tenderness Psych Appearance: grossly normal and well kempt Mental Status: mental status grossly normal Speech and movement: Normal speech and movement present Affect: normal affect Attitude: cooperative Thought process: Normal thought process present Thought content: Normal thought content present Coding Level of Care Code Est Pt Prev Care 40-64y(60177) Diagnoses Annual visit for general adult medical examination with abnormal findings Z. Obesity E66.9 Additional Codes VADIM-7 Assessment Billing - VADIM-7 Assessment Tool: VADIM-7 Assessment 13366 ([id number]) PHQ-9 - 33516 - PHQ-9 Billing: Yes ([id number]) Assessment & Plan Assessment & Plan (1) Annual visit for general adult medical examination with abnormal findings: Code(s): Z00. - Encounter for general adult medical examination with abnormal findings Category: Medical (2) Obesity: Code(s): E66.9 - Obesity, unspecified Category: Medical Plan - Schedule fasting blood work for cholesterol profile and vitamin-D level - Continue with annual screenings, including an eye exam. - up-to-date with Tdap, flu shot, consider getting COVID booster Orders: Orders Aspartate Amino Transferase 05/05/24 D64.9 - Anemia, unspecified, E55.9 - Vitamin D deficiency, unspecified, E66.9 - Obesity, unspecified, R31.29 - Other microscopic hematuria, Z00. - Encounter for general adult medical examination with abnormal findings, Z83.49 - Family history of other endocrine, nutritional and metabolic diseases Lipid Panel 05/05/24 D64.9 - Anemia, unspecified, E55.9 - Vitamin D deficiency, unspecified, E66.9 - Obesity, unspecified, R31.29 - Other microscopic hematuria, Z00.01 - Encounter for general adult medical examination with abnormal findings, Z83.49 - Family history of other endocrine, nutritional and metabolic diseases Vitamin D 25-OH Total 05/05/24 D64.9 - Anemia, unspecified, E55.9 - Vitamin D deficiency, unspecified, E66.9 - Obesity, unspecified, R31.29 - Other microscopic hematuria, Z00.01 - Encounter for general adult medical examination with abnormal findings, Z83.49 - Family history of other endocrine, nutritional and metabolic diseases Alanine Aminotransferase 05/05/24 D64.9 - Anemia, unspecified, E55.9 - Vitamin D deficiency, unspecified, E66.9 - Obesity, unspecified, R31.29 - Other microscopic hematuria, Z00.01 - Encounter for general adult medical examination with abnormal findings, Z83.49 - Family history of other endocrine, nutritional and metabolic diseases Basic Metabolic Panel Fasting 05/05/24 D64.9 - Anemia, unspecified, E55.9 - Vitamin D deficiency, unspecified, E66.9 - Obesity, unspecified, R31.29 - Other microscopic hematuria, Z00.01 - Encounter for general adult medical examination with abnormal findings, Z83.49 - Family history of other endocrine, nutritional and metabolic diseases Complete Blood Count Auto Diff 05/05/24 D64.9 - Anemia, unspecified, E55.9 - Vitamin D deficiency, unspecified, E66.9 - Obesity, unspecified, R31.29 - Other microscopic hematuria, Z00.01 - Encounter for general adult medical examination with abnormal findings, Z83.49 - Family history of other endocrine, nutritional and metabolic diseases
[2024-05-05 14:52] VITALS: BP 120/74; PULSE 78; O2SAT 98; BMI 35.7
== END 2024-05-05 15:42 | disposition home or self-care (01) ==
PROVIDERS: PCP Internal Medicine; Visit Provider Internal Medicine
DX: Z00.00 Encounter for general adult medical examination without abnormal findings (principal); E66.9 Obesity, unspecified; Z68.35 Body mass index [BMI] 35.0-35.9, adult

== ENCOUNTER → 2024-05-05 14:15 | Outpatient (BNVA) | payer OTHER, SELFPAY | PROVIDERS: PCP Internal Medicine; Visit Provider Internal Medicine | DX: Z00.00 Encounter for general adult medical examination without abnormal findings (principal); E66.9 Obesity, unspecified; Z68.35 Body mass index [BMI] 35.0-35.9, adult | CPT/HCPCS: 96127 ==

== ENCOUNTER 2024-06-27 07:36 | Outpatient (REF) | payer OTHER, SELFPAY | END 2024-06-27 07:37 | disposition home or self-care (01) | LOC: HO.MAMMO 07:36 | PROVIDERS: PCP Internal Medicine; Visit Provider Internal Medicine | DX: Z12.31 Encounter for screening mammogram for malignant neoplasm of breast (principal) | CPT/HCPCS: 77063; 77067 ==

== ENCOUNTER → 2024-06-27 07:45 | Outpatient (BNV) | payer OTHER, SELFPAY | PROVIDERS: PCP Internal Medicine; Visit Provider Internal Medicine | DX: Z12.31 Encounter for screening mammogram for malignant neoplasm of breast (principal) | CPT/HCPCS: 77063; 77067 ==

== ENCOUNTER 2025-04-06 14:35 | Outpatient (REF) | payer OTHER, SELFPAY | END 2025-04-06 14:36 | disposition home or self-care (01) | LOC: HO.LNP 14:35 | PROVIDERS: PCP Internal Medicine; Visit Provider Obstetrics & Gynecology | DX: Z01.419 Encounter for gynecological examination (general) (routine) without abnormal findings (principal); Z11.51 Encounter for screening for human papillomavirus (HPV) | CPT/HCPCS: 87626; 88175 ==

== ENCOUNTER 2025-04-06 14:35 | Outpatient (AMB) | payer OTHER, SELFPAY ==
--- NOTE | 2025-04-06 14:52 | A.OFFVIS_ITS ---
Vital Signs 04/06/25 14:55 Height 5 ft 2 in Weight 169 lb BMI 30.9 Intake Visit Reasons: [employer] annual exam Student Records Coordinator Required: No Information Interpreted: non-clinical & clinical Allergies No Known Allergies (No Known Allergies*) Allergy (Verified 05/05/24 15:16) Is last menstrual period known: Yes Last menstrual period: 03/21/25 HPI Comments Details: Presenting for annual exam. No complaints. Last Pap/HPV was negative in 12/05 Last Mammogram was BI-RADS 1 in 07/12 Last colonoscopy was in 05/08 [facility] Medical History Obesity Family history of hypothyroidism Anemia Annual visit for general adult medical examination with abnormal findings IBS (irritable bowel syndrome) Hiatal hernia with GERD Generalized anxiety disorder Frequent UTI Sleep apnea Gastric reflux Surgical History Hx of colonoscopy History of esophagogastroduodenoscopy (EGD) Hx of cholecystectomy Family History Paternal Grandmother Breast CA Paternal Uncle Mental health disorder Sister Mental health disorder Acquired hypothyroidism Mother Mental health disorder Acquired hypothyroidism Social History Household Members Other:: Female partner Housing: House Alcohol intake: current Patient Tobacco Use Status: Never used Tobacco e-Cigarette/Vaping Use: Never Used Current occupational status: employed Current occupation: [employer] Sexual orientation: Lesbian/Simon/Homosexual Gender identity: Female Cognitive needs: No Hearing needs: No Vision needs: Yes Female Reproductive History Menstrual Age of Menarche: 11 Duration of menses: 3-5 days Date of last menstrual period: 03/21/25 control method: none Date of last pap smear: 11/27/20 Date of Mammogram: 06/27/24 Review of Systems Const All systems reviewed & are unremarkable except as noted in HPI and below Card Reports as per HPI Resp Reports as per HPI GI Reports as per HPI and Reports no additional complaints Reports as per HPI Physical Exam Vital Signs: BMI result Body Mass Index 30.9 Const General: cooperative, healthy appearing and comfortable Chest Chest palpation & inspection: normal inspection of the chest and normal palpation of entire chest wall Breast/axilla inspection: normal inspection of the breasts and normal inspection of the axillae Breast/axilla palpation: normal palpation of the breasts, normal palpation of the axillae and no axillary lymphadenopathy Resp Effort & Inspection: normal respiratory effort Auscultation: clear to auscultation bilaterally Percussion: percussion normal Cardio Palpation: normal PMI Rate: regular rate Rhythm: regular rhythm Heart sounds: no murmurs and no rubs Peripheral pulses: Peripheral pulses 2+ throughout GI Inspection: Yes normal to inspection Palpation (GI): Soft to palpation, nontender, no guarding, not rigid and No hepatosplenomegaly present Percussion: Yes normal to percussion Auscultation: normal bowel sounds Rectal Exam - Female: deferred General: Yes bladder normal to palpation External Female Exam: No lesion Speculum Exam - Vagina: normal appearance of the vagina, normal palpation, normal vaginal discharge and not erythematous Speculum Exam - Cervix: normal appearance of the cervix and normal palpation Bimanual exam- vagina & uterus: normal bimanual exam, normal palpation, uterine size normal, bladder normal to palpation, consistency normal and normal palpation Bimanual Exam- Adnexa, other: normal adnexae, no masses and no tenderness Assessment & Plan Assessment & Plan (1) Well woman exam: Code(s): Z01.419 - Encounter for gynecological examination (general) (routine) without abnormal findings Category: Medical Plan: Cotesting done. Mammogram ordered. Counseled the patient about the recommended dietary allowance of 1000 mg of Calcium & 600 IU of vitamin D. The patient was instructed to perform monthly self-breast exams and to schedule an annual exam in a year; All questions answered and the patient verbalized understanding. Instructed the patient to schedule annual exam in a year Orders: Orders MM tomosynthesis screening BI Today Z12.31 - Encounter for screening mammogram for malignant neoplasm of breast Coding Level of Care Code Est Pt Prev Care 40-64y(04714) Diagnoses Well woman exam Z01.419
[2025-04-06 14:55] VITALS: BMI 30.9
== END 2025-04-06 15:16 | disposition home or self-care (01) ==
LOC: HO.HWS 14:36
PROVIDERS: PCP Internal Medicine; Visit Provider Obstetrics & Gynecology
DX: Z01.419 Encounter for gynecological examination (general) (routine) without abnormal findings (principal)
CPT/HCPCS: 99396; 99459